=== PATIENT | male | born 1935 | race Caucasian/White ===

== ENCOUNTER 2022-11-09 17:06 | Inpatient (IN) | payer MEDICARE ==
[~2022-11-09] VITALS: Ht 180.3 cm; Wt 68.9 kg
--- NOTE | 2022-11-09 17:45 | NUR ---
PT STATES HE TAKES MEDICATION FOR DIABETES - ONE LARGE PILL IN THE MORNING AND ONE SMALL PILL IN THE EVENING, BUT IS UNABLE TO REMEMBER THE NAME OF MEDICATION.
--- NOTE | 2022-11-09 18:25 | NUR ---
REPORT WAS GIVEN TO RN MHU. PT WAS TRANSFERED TO MHU ROOM #[id number].
[2022-11-09 18:30] VITALS: BP 146/75
[2022-11-09] MEDS ORDERED: BLOOD SUGAR DIAGNOSTIC 1 EACH STRIP VI ONE (18:45)
[2022-11-09] MEDS ORDERED: MAGNESIUM HYDROXIDE 30 ML LIQUID UDC PO PRN (18:45)
[2022-11-09] MEDS ORDERED: MAG HYDROX/AL HYDROX/SIMETH 30 ML LIQUID UDC PO PRN (18:45)
--- NOTE | 2022-11-09 18:49 | NUR ---
ADMISSION GPS NOTE: Admitted a case of 87 years old male from [facility] with ho history of Psychosis. Patient is on 5150 hold status. Patient arrived in a wheel chair accompanied by RN from ER. Initial report given by Declan ARCOS. On admission patient was cooperative to physical assessment and vital signs. Upon face to face, patient appeared alert, oriented to person and place, redirectable, cooperative. Patient verbalizes suicidal ideation, but denies homicidal ideation, hallucinations or delusions. Patient was also offered brief orientation to unit rules and policies and given a copy of patient's rights handbook. Patient belongings were accounted and contrabands removed. Psychiatrist Rosas and Buffing Wheel Presser Mague were informed and orders carried out. Patient is free of any pain or discomfort. Emotional support provided. Fall and safety precautions implemented.
[2022-11-09] MEDS: LORAZEPAM 0.5 MG TABLET PO PRN (21:14)
[2022-11-10] MEDS ORDERED: METF-442 PO (02:29)
[2022-11-10] MEDS ORDERED: LEVO50TA PO (02:29)
--- NOTE | 2022-11-10 04:57 | NUR ---
Patient was up early d/t nausea, emesis and some loose stools. Mylanta and crackers given. Patient remains alert and oriented. Denies SI. This patient is cooperative but slightly anxious. The patient stated " I am nervous because I am not in my usual environment . I ate something that did not agree with me. " Reassurance provided and assistance with ADLs. This marketing underwriter spoke with the patients daughter at the start of the shift. The daughter agreed to call back later this AM with a list of the patients medications from home. The patient is a poor historian. Safety Stratiges are in place and the patient has a FWW at the side of the bed for ambulation. Continuing to monitor for SI and further abdominal distress.
[2022-11-10 07:38] LABS: HEMATOCRIT 37.7 % (36.7-47.1); MEAN CORPUSCULAR HEMOGLOBIN 32.9 uug (23.8-33.4); MEAN CORPUSCULAR VOLUME 97.7 fL (73.0-96.2); PLATELET COUNT (AUTO) 252 K/uL (152-348)
[2022-11-10 07:51] VITALS: BP 118/73
[2022-11-10 08:14] LABS: CARBON DIOXIDE 28 mmol/L (21-32); CHLORIDE 107 mmol/L (98-107); CREATININE 1.2 mg/dL (0.6-1.3); GLUCOSE 171 mg/dL (74-106); POTASSIUM 4.6 mmol/L (3.5-5.1); UREA NITROGEN, BLOOD 31 mg/dL (7-18)
[2022-11-10 15:28] VITALS: BP 116/65
[2022-11-10] MEDS: METFORMIN HCL 500 MG TABLET PO SCH ×2 (17:44→17:47)
--- NOTE | 2022-11-10 18:50 | NUR ---
up on approach pt was anxious, labile, easily irritable. Pt stated "me and my daughter do not get along, she put me here to take my house and my money." I lost my to Covid 19 and my daughter wants to get rid of me to steal my house and my money, I do not try to kill my self." Reassurance provided. Pt refused medication and stated " I am not going to take any medications, I want to leave this place." verbally contracted with this internal communications writer for safety. Continue to monitor for safety, continue with treatment plan.
[2022-11-10 20:03] VITALS: BP 120/67
[2022-11-10] MEDS: MIRTAZAPINE 15 MG TABLET PO SCH (20:51)
[2022-11-10] MEDS: LORAZEPAM 0.5 MG TABLET PO PRN (20:51)
[2022-11-11] MEDS: LEVOTHYROXINE SODIUM 50 MCG TABLET PO SCH (06:16)
[2022-11-11 07:30] VITALS: BP 131/65
--- NOTE | 2022-11-11 09:45 | NUR ---
Gps/Coat Baster- Patient was back to the MHU via wheel chair, w/ left temporal laceration PROPOSAL MANAGER WRITER dermabonded. denies pain, no distress, offered to take tylenol ,refused . Stayed up on his chair attending his group tx.A CT of cervical spine , CT of head without contrast , EKG was done in ER prior to coming back to the MHU
[2022-11-11] MEDS: METFORMIN HCL 500 MG TABLET PO SCH (09:51)
--- NOTE | 2022-11-11 10:00 | NUR ---
Patient's [employer] School Combination Teacher was informed about the fall and ordered Echocardiogram, EKG, CT head without contrast, Orthostatic BP, labs. Patient was sent to ER at 07:30AM and had [place] shafer place in his left forehead for laceration. Incident report was filled. Nurse informed patient's daughter Shawnee Horan at [phone] about the incident. Patient presents no distress or pain. Fall and safety precautions implemented.
--- NOTE | 2022-11-11 10:42 | NUR ---
MYA Initial Discharge Note: Pt currently resides at home alone located at [address] [place] [address]. Pt is alert and oriented x4 and he would like to return home upon discharge. 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 SW will contact pt's daughter, Kelly ([phone]) and son ([phone]) to discuss pt's safe and proper discharge plan.
[2022-11-11 11:50] LABS: HEMATOCRIT 36.2 % (36.7-47.1); MEAN CORPUSCULAR VOLUME 98.4 fL (73.0-96.2); PLATELET COUNT (AUTO) 236 K/uL (152-348)
[2022-11-11 12:02] LABS: CARBON DIOXIDE 29 mmol/L (21-32); CHLORIDE 104 mmol/L (98-107); CREATININE 1.4 mg/dL (0.6-1.3); GLUCOSE 189 mg/dL (74-106); POTASSIUM 4.3 mmol/L (3.5-5.1); UREA NITROGEN, BLOOD 29 mg/dL (7-18)
--- NOTE | 2022-11-11 12:39 | NUR ---
Gps/Acetylene Torch Burner- Patient suffered a fall this am . Patient was found lying on the floor , in front of the doorway to bathroom , lysing on his left side, some blood on the floor from patient left temporal laceration . Patient was found incontinent of urine, pull ups diaper soaked . Assisted patient back to a chair cleaned left temporal lacerations . Екатерина 4TH GRADE TEACHER as well as Psychiatrist Dr Pillai was informed of the falls, orders received . Per patient he does not remember exactly what happened. Called family Kelly(Daughter) informed of the falls . Patient was also taken to ER for further evaluation of the left temporal laceration.
[2022-11-11 13:14] LABS: BAND % (MANUAL) 0 % (0-10); BASOPHILS % (MANUAL) 0 % (0-2); EOSINOPHILS % (MANUAL) 3 % (0-8); LYMPHOCYTES % (MANUAL) 17 % (20-40); METAMYELOCYTES % 0 % (0-1); MONOCYTES % (MANUAL) 17 % (2-10); MYELOCYTES % 0 % (0-0); NEUTROPHILS % (MANUAL) 54 % (42-75); REACTIVE LYMPHOCYTES 9 % (0-0)
[2022-11-11 13:15] LABS: BLASTS, MANUAL % 0 % (0-0); PROMYELOCYTES % 0 %
[2022-11-11 15:32] VITALS: BP 125/59
[2022-11-11] MEDS: ACETAMINOPHEN 325 MG TABLET PO PRN (17:18)
[2022-11-11 20:13] VITALS: BP 116/70
[2022-11-11] MEDS: MIRTAZAPINE 15 MG TABLET PO SCH (21:11)
[2022-11-12] MEDS: LEVOTHYROXINE SODIUM 50 MCG TABLET PO SCH (06:11)
--- NOTE | 2022-11-12 07:50 | NUR ---
GPS/net manager-B/P RIGHT ARM 129/66 lying, Sitting 145/67 HR 78 resp. 18 02 sat 95, standing 124/61 HR 81 02 sat 92%, resp 18, pain level 2/10 left middle finger, and ledt side head, ledt hip
[2022-11-12] MEDS: ACETAMINOPHEN 325 MG TABLET PO PRN (08:13)
[2022-11-12] MEDS: METFORMIN HCL 500 MG TABLET PO SCH (08:14)
[2022-11-12 08:16] VITALS: BP 129/66
[2022-11-12] MEDS: GLUCERNA SHAKE 237 ML CAN PO SCH (08:53)
--- NOTE | 2022-11-12 13:43 | NUR ---
Gps/Medical Lead- Swollen and bruised left middle finger , Екатерина Lora SOUR BLEACHING PLEATER in to see patient , order received. Safety continue to emphasized . Attendings group activity, monitored needs.Patient still does not remember how he fell yesterday.
[2022-11-12 15:55] VITALS: BP 128/69
--- NOTE | 2022-11-12 16:13 | NUR ---
Gps/Health Benefits Specialist- Encouraged to ambulate only supervised for safety, uses FWW, SBA, reviewed safety, items place with in his reach Bed alarm on when in bed . Splint to left middle finger as ordered for > swelling bruising noted., splint secured pt. was instructed not to remove .
[2022-11-12 18:33] LABS: *CREATININE,URINE 35.8 mg/dL (30-125); *URINE TOTAL PROTEIN RANDOM 6.5 mg/dL (<150/24HR)
[2022-11-12 18:50] LABS: *BILIRUBIN,URIN NEGATIVE (NEGATIVE); *CLARITY,URINE CLEAR (CLEAR); *COLOR,URINE YELLOW (YELLOW); *KETONES,URINE NEGATIVE (NEGATIVE); *UROBILINOGEN,URINE 0.2 E.U./dl (NORMAL); LEUKOCYTE ESTERASE ,URINE NEGATIVE (NEGATIVE); NITRITE, URINE NEGATIVE (NEGATIVE); PH,URINE 6.5 (5.0-8.0); UGLUCOSE NEGATIVE (NEGATIVE)
[2022-11-12 18:54] LABS: *BLOOD, URINE TRACE (NEGATIVE)
[2022-11-12 19:30] VITALS: BP 109/44
[2022-11-12] MEDS: MIRTAZAPINE 15 MG TABLET PO SCH (20:40)
[2022-11-12] MEDS: TEMAZEPAM 7.5 MG CAPSULE PO PRN (23:45)
[2022-11-13 01:15] LABS: BACTERIA,URINE FEW /HPF (NONE SEEN); RBC,URINE 0-3 /HPF (0-3); SQUAMOUS EPITHELIAL CELL,UR FEW /HPF (NONE SEEN); WBC,URINE 0-3 /HPF (0-3)
--- NOTE | 2022-11-13 02:47 | NUR ---
Orthostatic blood pressure reading as follow: Lyin/58 HR 79 Sittin/67 HR 83 Standin/66 HR 89
[2022-11-13] MEDS: LEVOTHYROXINE SODIUM 50 MCG TABLET PO SCH (06:20)
[2022-11-13 07:58] VITALS: BP 123/54
[2022-11-13 07:59] LABS: HEMATOCRIT 35.7 % (36.7-47.1); MEAN CORPUSCULAR HEMOGLOBIN 32.9 uug (23.8-33.4); MEAN CORPUSCULAR VOLUME 98.8 fL (73.0-96.2); PLATELET COUNT (AUTO) 223 K/uL (152-348)
[2022-11-13 08:26] LABS: ALANINE AMINOTRANSFERASE 26 U/L (16-63); ALKALINE PHOSPHATASE 64 U/L (50-136); ASPARTATE AMINOTRANSFERASE 13 U/L (15-37); BILIRUBIN,TOTAL 0.2 mg/dL (0.2-1.0); CARBON DIOXIDE 30 mmol/L (21-32); CHLORIDE 105 mmol/L (98-107); CREATINE KINASE, TOTAL 49 U/L (39-308); CREATININE 1.4 mg/dL (0.6-1.3); GLUCOSE 127 mg/dL (74-106); PHOSPHOROUS 3.3 mg/dL (2.5-4.9); POTASSIUM 4.8 mmol/L (3.5-5.1); TOTAL PROTEIN, SERUM 6.2 g/dL (6.4-8.2); UREA NITROGEN, BLOOD 31 mg/dL (7-18)
[2022-11-13 08:28] LABS: NUCLEATED RED BLOOD CELLS 0.2 /100WBC
[2022-11-13] MEDS: METFORMIN HCL 500 MG TABLET PO SCH (08:45)
[2022-11-13] MEDS: GLUCERNA SHAKE 237 ML CAN PO SCH (08:45)
--- NOTE | 2022-11-13 13:08 | NUR ---
There is an existing order for routine Renal Ultrasound whish is supposed to be done on 11/12/2022. The tech is unable to upload the case on the [facility] now. The tech talked to JOSSELYN Steen. The assigned RN is on break. The tech told JOSSELYN Steen to scan later.
[2022-11-13 13:25] LABS: NEUTROPHILS % (MANUAL) 43 % (42-75)
[2022-11-13 13:26] LABS: BAND % (MANUAL) 0 % (0-10); BASOPHILS % (MANUAL) 0 % (0-2); BLASTS, MANUAL % 0 % (0-0); EOSINOPHILS % (MANUAL) 3 % (0-8); LYMPHOCYTES % (MANUAL) 37 % (20-40); METAMYELOCYTES % 0 % (0-1); MONOCYTES % (MANUAL) 15 % (2-10); MYELOCYTES % 0 % (0-0); PROMYELOCYTES % 0 %; REACTIVE LYMPHOCYTES 2 % (0-0)
[2022-11-13 13:40] LABS: BAND % (MANUAL) 0 % (0-10); BASOPHILS % (MANUAL) 0 % (0-2); BLASTS, MANUAL % 0 % (0-0); EOSINOPHILS % (MANUAL) 3 % (0-8); LYMPHOCYTES % (MANUAL) 37 % (20-40); METAMYELOCYTES % 0 % (0-1); MONOCYTES % (MANUAL) 15 % (2-10); MYELOCYTES % 0 % (0-0); NEUTROPHILS % (MANUAL) 43 % (42-75); PROMYELOCYTES % 0 %; REACTIVE LYMPHOCYTES 2 % (0-0)
--- NOTE | 2022-11-13 14:54 | NUR ---
Gps/Entry Level Programmer -Verbalized feelings of being upset, claimed he does not llike his daughter taking over his house, daughter lives at the back of his house in [place], need to see a Green Tire Inspector to depend him regarding his property. Left middle finger with splint , bruising noted
[2022-11-13 16:35] VITALS: BP 112/57
[2022-11-13] MEDS: MIRTAZAPINE 15 MG TABLET PO SCH (20:28)
[2022-11-13 20:43] VITALS: BP 112/48
--- NOTE | 2022-11-14 05:59 | NUR ---
Pt was calm up on approach. Pt can be labile, easily irritable at times. pt is compliant with medications and nursing care. Reassurance provided. Pt denies SI and verbally contracted with this writer technical publications for safety. Pt slept for 6.0 hours. Safety measures put in place. Continue to monitor for safety, continue with treatment plan.
[2022-11-14] MEDS: LEVOTHYROXINE SODIUM 50 MCG TABLET PO SCH (06:05)
--- NOTE | 2022-11-14 06:06 | NUR ---
The patients orthostatic VS are negative. Laying 140/62, 68 pulse. Sitting 143/72 , 71 pulse and standing 149/71, 77 pulse.
[2022-11-14 08:02] VITALS: BP 121/54
[2022-11-14] MEDS: METFORMIN HCL 500 MG TABLET PO SCH (08:41)
[2022-11-14] MEDS: GLUCERNA SHAKE 237 ML CAN PO SCH (08:42)
[2022-11-14] MEDS: FLUOXETINE HCL 10 MG CAPSULE PO SCH (08:44)
--- NOTE | 2022-11-14 14:56 | NUR ---
Gps/Nurse Emergency Room- Stayed in the patio with his peers, interacting fairly well. Continued verbalization of his frustration, claimed there's no one to talked to regarding his issues , and that its all his daughter's doing that he ends up in this place. Claimed he's capable of driving still but his DL.revoked blaming his daughter .
[2022-11-14 16:20] VITALS: BP 114/69
[2022-11-14 19:26] LABS: THYROID STIMULATING HORMONE 4.21 mIU/mL (0.358-3.740)
[2022-11-14 20:06] VITALS: BP 126/56
[2022-11-14] MEDS: MIRTAZAPINE 15 MG TABLET PO SCH (21:02)
[2022-11-14] MEDS: ACETAMINOPHEN 325 MG TABLET PO PRN (21:02)
[2022-11-15] MEDS: LEVOTHYROXINE SODIUM 50 MCG TABLET PO SCH (05:57)
--- NOTE | 2022-11-15 06:37 | NUR ---
Patients orthostatic blood pressure was negative. Laying 134/68 pulse 62. Sitting 138/74 pulse 72. Standing 151/71 pulse 77. Safety Stratiges remain in place. Sleep hours 6.45
[2022-11-15 08:03] VITALS: BP 119/52
[2022-11-15] MEDS: FLUOXETINE HCL 10 MG CAPSULE PO SCH (09:29)
[2022-11-15] MEDS: METFORMIN HCL 500 MG TABLET PO SCH (09:29)
[2022-11-15] MEDS: GLUCERNA SHAKE 237 ML CAN PO SCH (09:30)
[2022-11-15 10:10] VITALS: BP_SYST 150; BP_SYST 163; BP_SYST 165; BP_DIAS 75; BP_DIAS 81; BP_DIAS 85
--- NOTE | 2022-11-15 11:09 | NUR ---
SW Discharge Update: SW spoke with pt's daughter, Kelly ([phone]) who stated that she is DPOA for the pt. Kelly is aware that she needs to send us paperwork. Kelly would like pt to continue care at a [facility]p facility. Kelly is aware that pt is argumentative and continues to state he wants to return home where he resides with his daughter, Kelly. SW will continue to work with Kelly and pt to ensure a safe and proper discharge plan.
[2022-11-15 13:06] LABS: A/G RATIO 1.2 (0.7-1.7); ALPHA-1-GLOBULIN 0.2 g/dL (0.0-0.4); ALPHA-2-GLOBULIN 0.7 g/dL (0.4-1.0); BETA GLOBULIN 0.8 g/dL (0.7-1.3); GAMMA GLOBULIN 0.9 g/dL (0.4-1.8); GLOBULIN, TOTAL 2.6 g/dL (2.2-3.9); M-SPIKE Not Observed g/dL (Not Observed)
--- NOTE | 2022-11-15 15:21 | NUR ---
GPS: Nursing Notes: Destructive Behavior To Self: Patient is awake and responding to his name, depressed mood and anxious affect, needs prompting to participate in therapeutic groups, gets easily anxious when redirected, forgetful at times, slight paranoid, stating "Someone stole his shoes...", argumentative at times, on fall precautions, ambulatory with fww, continue to monitor for safety, unable to formulate a viable plan for self care, continue with treatment plan.
[2022-11-15 15:39] VITALS: BP 125/57
[2022-11-15 20:00] VITALS: BP 113/43
[2022-11-15] MEDS: MIRTAZAPINE 15 MG TABLET PO SCH (20:10)
[2022-11-15] MEDS: TEMAZEPAM 7.5 MG CAPSULE PO PRN (21:02)
--- NOTE | 2022-11-15 22:13 | NUR ---
Pt c/o insomnia. Administered Trazodone 7.5mg PO as ordered with good effect. Pt sleeping comfortably at this time. In no acute distress.
[2022-11-16] MEDS: LEVOTHYROXINE SODIUM 50 MCG TABLET PO SCH (06:08)
[2022-11-16 08:12] VITALS: BP 138/74
[2022-11-16] MEDS: GLUCERNA SHAKE 237 ML CAN PO SCH (08:21)
[2022-11-16] MEDS: FLUOXETINE HCL 10 MG CAPSULE PO SCH (08:21)
[2022-11-16] MEDS: METFORMIN HCL 500 MG TABLET PO SCH (08:21)
[2022-11-16 10:00] VITALS: BP_SYST 110; BP_SYST 113; BP_SYST 118; BP_DIAS 57; BP_DIAS 60; BP_DIAS 64
--- NOTE | 2022-11-16 13:07 | NUR ---
GPS Nursing Notes for [facility]: Patient hearing for 5250 upheld for GD; Patient verbalized understanding.
--- NOTE | 2022-11-16 13:49 | NUR ---
GPS: Nursing Notes: Destructive Behavior To Self: Patient is awake and responding to his name, gets easily irritable when redirected, impaired judgment, depressed mood and angry affect, stated again today "Somebody stole my shoes.. They were next to me.. Someone stole from me.." redirected and reoriented during shift, forgetful at times, unable to formulate a viable plan for self care, unkempt appearance, continue to monitor for safety, continue with treatment plan.
[2022-11-16 16:00] VITALS: BP 135/67
[2022-11-16 20:00] VITALS: BP 131/59
[2022-11-16] MEDS: TEMAZEPAM 7.5 MG CAPSULE PO PRN (21:07)
[2022-11-16] MEDS: MIRTAZAPINE 15 MG TABLET PO SCH (21:07)
[2022-11-17] MEDS: LEVOTHYROXINE SODIUM 50 MCG TABLET PO SCH (06:07)
[2022-11-17 07:54] VITALS: BP 141/74
[2022-11-17] MEDS: METFORMIN HCL 500 MG TABLET PO SCH (08:45)
[2022-11-17] MEDS: FLUOXETINE HCL 10 MG CAPSULE PO SCH (08:45)
[2022-11-17] MEDS: GLUCERNA SHAKE 237 ML CAN PO SCH (09:00)
--- NOTE | 2022-11-17 09:00 | NUR ---
Received pt in room,sitting calm on approach.Pt is A/O X3, ambulatory , self care.Pt is compliant with nursing care and most of her medications. Pt can be selective with medications and paranoid at times . Pt will be discharge today to a SNF, Pt is aware and agreeable. Continue to monitor for safety, Continue with treatment plan. Addendum: 11/17/22 at 1217 by ABEL JAIN LVN Wrong Patient documentation
--- NOTE | 2022-11-17 10:00 | NUR ---
Firearms Report: Mold Stacker completed and submitted a DOJ firearms report for 5150 danger to self certifications. A copy of report has been placed in patient chart.
--- NOTE | 2022-11-17 11:14 | NUR ---
Clinical SW Note: Per psychiatrist, Dr. Pillai ([phone]) request, Dr. 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
--- NOTE | 2022-11-17 11:30 | NUR ---
Received orders to discharged pt to [address] [address]) [phone] via FACILITY TRANSPORTATION at 11AM by heavy truck driver, Adam. Pt is aware and agreeable with discharge plan. Pts , Carlo ([phone]) is aware and agreeable with the discharge plan. Pt is alert and oriented x3, is unable to plan for self-care at this time. However, pt is willing to accept care at SNF. Pt denies SI/HI, AH/VH, SOB and pain . Pt presents with calm mood and congruent affect, Pt is self care ambulatory and able to make all needs known. Pt was discharge with all belongings and valuables. No behavioral needs noted and no acute distress noted. Addendum: 11/17/22 at 1214 by ABEL JAIN LVN Wrong Patient .
[2022-11-17 15:25] VITALS: BP 135/61
--- NOTE | 2022-11-17 17:38 | NUR ---
Pt was calm up on approach. Pt can be labile, easily irritable and confused at times. Pt is depressed isolative in room all day. pt is compliant with medications and nursing care. Encourage pt to participate in group activities and pt stated "What for , What good is it going to do " Reassurance provided. Pt denies SI and verbally contracted with this content writer for safety. Safety measures put in place. Continue to monitor for safety, continue with treatment plan.
[2022-11-17 19:57] VITALS: BP 142/66
[2022-11-17] MEDS: MIRTAZAPINE 15 MG TABLET PO SCH (20:33)
[2022-11-17] MEDS: TEMAZEPAM 7.5 MG CAPSULE PO PRN (23:02)
[2022-11-18] MEDS: LEVOTHYROXINE SODIUM 50 MCG TABLET PO SCH (06:35)
[2022-11-18 08:19] VITALS: BP 147/77
[2022-11-18] MEDS: GLUCERNA SHAKE 237 ML CAN PO SCH (09:00)
[2022-11-18] MEDS ORDERED: FLUOXETINE HCL 10 MG CAPSULE PO SCH (09:00)
[2022-11-18] MEDS: METFORMIN HCL 500 MG TABLET PO SCH (09:11)
[2022-11-18] MEDS: FLUOXETINE HCL 20 MG CAPSULE PO SCH (09:12)
--- NOTE | 2022-11-18 15:33 | NUR ---
Receive pt in room sitting in bed , calm up on approach. Pt is less depressed . pt is compliant with medications and nursing care. Encourage pt to participate in group activities and pt attended group activities. Pt engaged in with peers and staff during group activities. Pt came out of room more times during shift and walked around unit. Reassurance provided. Pt denies SI and verbally contracted with this proposal lead writer for safety. Safety measures put in place. Continue to monitor for safety, continue with treatment plan.
[2022-11-18 15:59] VITALS: BP 124/68
[2022-11-18 19:55] VITALS: BP 138/76
[2022-11-18] MEDS: MIRTAZAPINE 15 MG TABLET PO SCH (20:16)
[2022-11-18] MEDS: TEMAZEPAM 7.5 MG CAPSULE PO PRN (23:26)
[2022-11-19] MEDS: LEVOTHYROXINE SODIUM 50 MCG TABLET PO SCH (06:33)
[2022-11-19 07:35] VITALS: BP 130/68
[2022-11-19] MEDS: GLUCERNA SHAKE 237 ML CAN PO SCH (09:00)
[2022-11-19] MEDS: METFORMIN HCL 500 MG TABLET PO SCH (09:03)
[2022-11-19] MEDS: FLUOXETINE HCL 20 MG CAPSULE PO SCH (09:04)
--- NOTE | 2022-11-19 10:16 | NUR ---
SW Discharge Update: SW spoke with pt's daughter, Kelly ([phone]) and informed Kelly of pt's discharge plan to [address] [address] ([phone]) on TuesdayNovember 23 at 11AM via ambulance transportation. Kelly and pt are agreeable.
--- NOTE | 2022-11-19 15:41 | NUR ---
Receive pt in room sitting in bed , calm up on approach. Pt is depressed and stated "is not a good day for me today, I feel sad. "i am thinking of my and all the things together"." I love her so much" She was my high school sweet heart". Reassurance and emotional support provided . Pt is compliant with medications and nursing care. Encourage pt to participate in group activities but pt stated "I am too sad to do anything". Pt denies SI and verbally contracted for safety. Safety measure continue to be in place for safety. Continue to monitor for safety , continue with treatment plan.
[2022-11-19 15:56] VITALS: BP 136/46
[2022-11-19 20:13] VITALS: BP 113/64
[2022-11-19] MEDS: MIRTAZAPINE 15 MG TABLET PO SCH (21:04)
[2022-11-19] MEDS: LORAZEPAM 0.5 MG TABLET PO PRN (21:07)
[2022-11-19] MEDS: TEMAZEPAM 7.5 MG CAPSULE PO PRN (23:52)
--- NOTE | 2022-11-20 04:18 | NUR ---
Received patient in his room, irritated, saying " I need to get out of here before my daughter takes my house. ". When this investment underwriter asked about having SI, the patient would not confirm or deny. " I know if I kill myself then I will be on GOD's list. Ya know, the bad one ". The patient has flight of ideas, is narrow minded ,and with obsessive thoughts. Patient ruminates on things that might be happening and is paranoid as well. This investment underwriter tried to reassure and redirect the patient. Attempted to talk about his concerns in a realistic way, but this patient had no insight to his behavior. The patient requested a sleeping medications. The more the patient engaged in conversation, the more angry he would become. Safety Stratiges remain in place and ongoing monitoring for SI or behavior escalation. A verbal contract for safety was made between the investment underwriter and the patient for tonight.
[2022-11-20] MEDS: LEVOTHYROXINE SODIUM 50 MCG TABLET PO SCH (06:22)
[2022-11-20 08:09] VITALS: BP 123/72
[2022-11-20] MEDS: GLUCERNA SHAKE 237 ML CAN PO SCH (08:11)
[2022-11-20] MEDS: METFORMIN HCL 500 MG TABLET PO SCH (08:11)
[2022-11-20] MEDS: FLUOXETINE HCL 20 MG CAPSULE PO SCH (08:11)
--- NOTE | 2022-11-20 13:25 | NUR ---
GPS: Nursing Notes: Destructive Behavior To Self: Patient is awake and responding to his name, depressed mood and anxious affect, ambulatory with fww, on fall precautions, continue to monitor for safety, unable to formulate a viable plan for self care, needs prompting to participate in therapeutic groups, cooperative with nursing care, denies SI, stated "I do not want to be in God's bad list..", agreed to shave, continue with treatment plan.
[2022-11-20 16:24] VITALS: BP 123/72
[2022-11-20 20:00] VITALS: BP 133/63
[2022-11-20] MEDS: MIRTAZAPINE 15 MG TABLET PO SCH (20:48)
[2022-11-20] MEDS: LORAZEPAM 0.5 MG TABLET PO PRN (20:48)
[2022-11-21] MEDS: TEMAZEPAM 7.5 MG CAPSULE PO PRN ×2 (00:23→22:45)
[2022-11-21] MEDS: LEVOTHYROXINE SODIUM 50 MCG TABLET PO SCH (06:31)
[2022-11-21 07:44] VITALS: BP 111/64
[2022-11-21] MEDS: METFORMIN HCL 500 MG TABLET PO SCH (08:37)
[2022-11-21] MEDS: FLUOXETINE HCL 20 MG CAPSULE PO SCH (08:37)
[2022-11-21] MEDS: GLUCERNA SHAKE 237 ML CAN PO SCH (08:37)
--- NOTE | 2022-11-21 14:52 | NUR ---
GPS: Nursing Notes: Destructive Behavior To Self: Patient is awake and responding to her name, depressed mood and blunted affect, gets easily irritable when redirected, slightly paranoid, believes that we are stealing his shirts, redirected and reoriented during shift, forgetful at times, needs prompting to participate in therapeutic groups in the afternoon, unable to formulate a viable plan for self care, cooperative with nursing care, denies SI, stated "I am ready to go home.." continue to monitor for safety, continue with treatment plan.
[2022-11-21 16:17] VITALS: BP 117/60
[2022-11-21 20:08] VITALS: BP 121/67
[2022-11-21] MEDS: MIRTAZAPINE 15 MG TABLET PO SCH (21:39)
--- NOTE | 2022-11-22 03:38 | NUR ---
Patient was calm last night. Denied SI. Was given a shower and requested a sleeping pill. No issues so far. Safety Stratiges remain in place. Continuing with the plan of care. A verbal contract for safety was made with this remote mortgage underwriter.
[2022-11-22] MEDS: LEVOTHYROXINE SODIUM 50 MCG TABLET PO SCH (06:02)
[2022-11-22 07:40] VITALS: BP 106/72
[2022-11-22] MEDS: FLUOXETINE HCL 20 MG CAPSULE PO SCH (08:30)
[2022-11-22] MEDS: GLUCERNA SHAKE 237 ML CAN PO SCH (08:30)
[2022-11-22] MEDS: METFORMIN HCL 500 MG TABLET PO SCH (08:30)
--- NOTE | 2022-11-22 13:44 | NUR ---
GPS: Nursing Notes: Destructive Behavior To Self: Patient is awake and responding to his name, cooperative with nursing care, compliant with his medications, participating in therapeutic groups, depressed mood and blunted affect, unable to formulate a viable plan for self care, ambulatory with fww, interactive with peers, needs minimal assistance with ADL's, denies SI, continue to monitor for safety, continue with treatment plan.
[2022-11-22 16:15] VITALS: BP 119/56
[2022-11-22 19:43] VITALS: BP 130/63
[2022-11-22] MEDS: MIRTAZAPINE 15 MG TABLET PO SCH (20:07)
--- NOTE | 2022-11-22 20:59 | NUR ---
GPS: Pt.denies SI. Contracts for safety at this time. Safe environment provided. Re-assured prn. Needs attended. Will continue to monitor.
[2022-11-22] MEDS: TEMAZEPAM 7.5 MG CAPSULE PO PRN (23:40)
[2022-11-23] MEDS: LEVOTHYROXINE SODIUM 50 MCG TABLET PO SCH (06:14)
[2022-11-23 07:50] VITALS: BP 127/72
[2022-11-23] MEDS: METFORMIN HCL 500 MG TABLET PO SCH (08:08)
[2022-11-23] MEDS: FLUOXETINE HCL 20 MG CAPSULE PO SCH (08:08)
[2022-11-23] MEDS: GLUCERNA SHAKE 237 ML CAN PO SCH (08:08)
--- NOTE | 2022-11-23 09:38 | NUR ---
MYA Discharge Screener: MYA completed a discharge screener.
--- NOTE | 2022-11-23 09:40 | NUR ---
MYA Discharge Note: Pt will be discharged to [facility] located at [address] [place] [phone] ([phone]) via Ambulance transportation at 11AM. MYA spoke with Hakan lara [phone] at the facility who states they are ready to accept the patient today. Pt is aware and agreeable with discharge plan. Pts daughter/DPOA, Kelly ([phone]) is aware and agreeable with the discharge plan. Pt is alert and oriented x4, is unable to plan for self-care at this time. However, pt is willing to accept care at SNF. Pt denies any suicidal or homicidal ideation. Pt will follow-up at the facility with Psychiatrist, Dr. Pillai ([phone]) and Residential Leasing Agent, Dr. Qureshi. Pt presents with calm mood and congruent affect. [facility]: [facility] ([phone]) [address] [place] [address].
--- NOTE | 2022-11-23 11:45 | NUR ---
GPS: Nursing Notes: Discharge Notes: Patient is awake and responding to his name, cooperative with nursing care, compliant with his medications, following staff directions, A/Ox3, forgetful at times, denies SI/HI, denies AH/VH, denies pain or discomfort, denies SOB. Patient discharge to [facility] [place] [address] [place] [address] . Report given to facility's admitting nurse - Roderick - RN warehouse packaging supervisor. Took all his belonging with him. Transported to facility via ambulance. Patient will follow-up at the facility with Psychiatrist, Dr. Pillai ([phone]) and Liver Trimmer, Dr. Qureshi for aftercare. Patient's daughter - Kelly was notified of discharge by social work lecturer.
== END 2022-11-23 11:45 | DRG 885 ==
LOC: ER 17:12 → GPS 18:06
PROVIDERS: ADMIT Psychiatry & Neurology Psychosomatic Medicine; ATTEND Nurse Practitioner Acute Care
DX: F33.2 Major depressive disorder, recurrent severe without psychotic features (principal); N17.9 Acute kidney failure, unspecified; R45.851 Suicidal ideations; F03.93 Unspecified dementia, unspecified severity, with mood disturbance; F41.9 Anxiety disorder, unspecified; S01.81XA Laceration without foreign body of other part of head, initial encounter; W19.XXXA Unspecified fall, initial encounter; Y92.239 Unspecified place in hospital as the place of occurrence of the external cause; F42.9 Obsessive-compulsive disorder, unspecified; T71.122 Asphyxiation due to plastic bag, intentional self-harm; I45.10 Unspecified right bundle-branch block; E11.9 Type 2 diabetes mellitus without complications; E03.9 Hypothyroidism, unspecified; Z79.890 Hormone replacement therapy; R79.89 Other specified abnormal findings of blood chemistry; Z79.84 Long term (current) use of oral hypoglycemic drugs; R42 Dizziness and giddiness
CPT/HCPCS: 36415; 70030-TC; 83735; 83970; 84100; 84155; 84165; 84300; 84443; 85025; 93005; 93307; A4663

== ENCOUNTER 2022-11-11 07:54 | Emergency (ER) | payer MEDICARE ==
[~2022-11-11] VITALS: Ht 180.3 cm; Wt 70.3 kg
[~2022-11-11 07:54] MED LIST: LEVO50TA PO; METF-442 PO
--- NOTE | 2022-11-11 08:08 | NUR ---
Dr Pillai(Psychiatrist) in to see pt.
--- NOTE | 2022-11-11 08:12 | NUR ---
Dr Ram at the bedside for MSE.
--- NOTE | 2022-11-11 09:22 | NUR ---
Patient is resting comfortably in bed with eyes closed, easily arousable. Denies pain.
[2022-11-11 09:44] VITALS: BP 140/69
== END 2022-11-11 09:45 | disposition hospice, inpatient (51) ==
LOC: ER 07:54
DX: S01.81XA Laceration without foreign body of other part of head, initial encounter (principal); E11.9 Type 2 diabetes mellitus without complications; Z79.899 Other long term (current) drug therapy; W18.39XA Other fall on same level, initial encounter; Y93.89 Activity, other specified; Y92.89 Other specified places as the place of occurrence of the external cause; Y99.8 Other external cause status
CPT/HCPCS: 70450; 72125; A4663